=== PATIENT | female | born 1985 | race Caucasian/White ===

== ENCOUNTER 2018-11-22 17:06 | Emergency (ER) | payer OTHER ==
[~2018-11-22] VITALS: Ht 165.1 cm; Wt 109.8 kg
[~2018-11-22 17:06] MED LIST: NORCO 5-325 TA1 EAC1 PO
[2018-11-22 17:27] LABS: URINE BILIRUBIN NEGATIVE (Negative); URINE BLOOD TRACE (Negative); URINE CLARITY CLEAR; URINE COLOR YELLOW; URINE GLUCOSE-RANDOM NEGATIVE (Negative); URINE KETONES NEGATIVE (Negative); URINE LEUKOCYTES-REFLEX NEGATIVE (Negative); URINE NITRITE-REFLEX NEGATIVE (Negative); URINE PROTEIN NEGATIVE (Negative); URINE SPECIFIC GRAVITY >= 1.030 (1.005-1.030); URINE UROBILINOGEN 0.2 E.U./dl (0.2-1.0)
[2018-11-22] MEDS ORDERED: LAMICTAL100 MG PO (17:27)
[2018-11-22] MEDS ORDERED: XANAX 0.25 MG0.25 MG PO (17:27)
[2018-11-22 17:58] LABS: ABSOLUTE BASOPHILS 0.1 thou/uL (0.0-0.2); ABSOLUTE EOSINOPHILS 0.1 thou/uL (0.0-0.7); ABSOLUTE LYMPHOCYTES 1.6 thou/uL (0.8-5.3); ABSOLUTE MONOCYTES 0.7 thou/uL (0.0-1.2); BASOPHILS 0.7 %; EOSINOPHILS 1.1 %; HEMATOCRIT 32.6 % (37.0-47.0); HEMOGLOBIN 10.8 gm/dL (12.0-15.0); LYMPHOCYTES 13.1 %; MCH 27.4 pg (26.0-34.0); MCHC 33.2 g/dL (28.0-37.0); MCV 82.5 fL (80.0-100.0); MONOCYTES 5.5 %; MPV 8.9 fl. (7.2-11.1); NUCLEATED RBCS 0 /100WBC; PLATELET COUNT* 331 thou/uL (150-400); POLYS 79.6 %; RBC 3.95 mil/uL (4.20-5.00); RDW-CV 15.6 % (10.5-14.5); WBC 12.5 thou/uL (4.0-11.0)
[2018-11-22 18:02] LABS: CALCIUM 9.8 mg/dL (8.5-10.1); POTASSIUM 3.7 mmol/L (3.5-5.1)
[2018-11-22 18:12] LABS: ALBUMIN 3.9 g/dL (3.4-5.0); TOTAL BILIRUBIN 0.8 mg/dL (<0.1-1.0); TOTAL PROTEIN 8.4 g/dL (6.4-8.2)
[2018-11-22] MEDS ORDERED: FLAGYL500 M1 PO (19:39)
[2018-11-22] MEDS ORDERED: CIPRO500 M1 PO (19:39)
[2018-11-22] MEDS ORDERED: NORCO 5-325 TA1 EAC1 PO (19:39)
[2018-11-22 20:38] VITALS: BP 110/48
== END 2018-11-22 20:38 | disposition home or self-care (01) ==
LOC: M.ERS 17:06
PROVIDERS: Nurse Practitioner Family
DX: K57.32 Diverticulitis of large intestine without perforation or abscess without bleeding (principal); F41.9 Anxiety disorder, unspecified